=== PATIENT | female | born 1925 | race Caucasian/White ===

== ENCOUNTER 2016-08-02 12:07 | Emergency (ER) | payer MEDICARE, OTHER ==
[2016-08-02 13:41] VITALS: BP 177/66
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
== END 2016-08-02 14:34 | disposition home or self-care (01) ==
LOC: ER 12:07
DX: S02.2XXA Fracture of nasal bones, initial encounter for closed fracture (principal); S00.31XA Abrasion of nose, initial encounter; S60.221A Contusion of right hand, initial encounter; W18.09XA Striking against other object with subsequent fall, initial encounter; Y92.009 Unspecified place in unspecified non-institutional (private) residence as the place of occurrence of the external cause